=== PATIENT | male | born 1970 | race Caucasian/White ===

== ENCOUNTER 2022-03-13 11:20 | Emergency (ER) | payer OTHER ==
[2022-03-13] MEDS ORDERED: Ondansetron 4 MG Tab.DIS PO ONE (11:35)
[2022-03-13] MEDS ORDERED: HYDROmorphone 1 MG/ML Syringe IM ONE (11:35)
[2022-03-13 13:02] LABS: CARBON DIOXIDE,CO2 24.5 mmol/L (21.0-32.0); POTASSIUM,K 4.3 mmol/L (3.5-5.1)
== END 2022-03-13 13:50 | disposition home or self-care (01) ==
LOC: MW.ED 11:20
DX: S32.2XXA Fracture of coccyx, initial encounter for closed fracture (principal); S32.021A Stable burst fracture of second lumbar vertebra, initial encounter for closed fracture; W00.0XXA Fall on same level due to ice and snow, initial encounter; Y92.89 Other specified places as the place of occurrence of the external cause; Y99.0 Civilian activity done for income or pay
CPT/HCPCS: 36415; 72131; 80053; 84484; 85025; 93005; 96372; 99284; A9270; J1170